=== PATIENT | female | born 1955 | race Caucasian/White ===

== ENCOUNTER 2023-02-02 10:18 | Emergency (ER) | payer MEDICARE, SELFPAY ==
[2023-02-02 10:34] VITALS: BP 145/97; PULSE 102; TEMP 36.4; O2SAT 96; BMI 21.4
--- NOTE | 2023-02-02 10:51 | XRR_ITS ---
PROCEDURE INFORMATION: Exam: XR Cervical Spine Exam date and time: 02/02/2023 11:18 AM Age: 67 years old Clinical indication: Other: Pain radiating from R neck down R arm; Additional info: Neck pain, radiating arm pain TECHNIQUE: Imaging protocol: Radiologic exam of the cervical spine. Views: 2 or 3 views. COMPARISON: No relevant prior studies available. FINDINGS: Bones/joints: Severe uncovertebral joint hypertrophic changes. Listhesis of C3 6 mm anterior to C4. Listhesis C4 6 mm anterior to C5. Moderate to severe degenerative disc disease C5/6 and C6/7 with moderate facet joint hypertrophic changes. No fracture. Soft tissues: Unremarkable. XR/XR cervical spine 3V* [id number] IMPRESSION: Arthritis and listhesis.
--- NOTE | 2023-02-02 10:53 | W.ED.EXTPRO ---
HPI - Extremity Problem General: Chief complaint: Extremity Injury, Upper Stated complaint: Right shoulder an arm pain Time Seen by Provider: 02/02/23 10:42 Source: patient Limitations: no limitations History of Present Illness: 67-year-old female presents to the ER today for severe right arm pain. Patient reports this began last night during the night. She reports she is taken aspirin, Tylenol, and ibuprofen with no improvement. Patient reports it starts in her right shoulder and radiates down to her right pinky. She reports she has some numbness in her right pinky. Patient reports rubbing the arm makes it worse because it hurts to even touch her skin. Patient reports this happened about a week ago but improved within a couple of hours. Patient denies any recent injury to the neck or shoulder however does report she had an accident years ago and did injure her neck at that time. Patient reports nothing she has done recently should have exacerbated that she can think of. Patient reports a week ago when she had the pain movement made the pain better however this time movement is making it worse. She has not had any imaging of the neck or shoulder done at this time. Review of Systems General: Reports: 10 or more systems reviewed and unremarkable except in HPI and below Physical Exam Const: COMMON NORMALS: average body habitus, patient oriented x3, no limitations, healthy appearing, alert and well nourished; apparent distress (appears uncomfortable) Neck/C-Spine: COMMON NORMALS: full ROM and no lymphadenopathy CERVICAL SPINE: Yes cervical ROM normal, No Cervical spine tenderness and No Paracervical muscle tenderness Resp: COMMON NORMALS: normal respiratory effort, No retractions and clear to auscultation bilaterally AUSCULTATION: clear to auscultation bilaterally Cardio: COMMON NORMALS: regular rate, regular rhythm and No murmurs present (Cardio) RATE: regular rate RHYTHM: regular rhythm Extremity: NARRATIVE EXTREMITY EXAM: Patient has full range of motion of the right shoulder however does report pain with all movements. No deformity or swelling is noted. Patient has full range of motion of the right hand but does experience some decreased sensation in the right pinky finger. Patient also has tenderness noted to light palpation of the skin along the ulna. Neuro: COMMON NORMALS: patient oriented x3 SENSORIUM/ORIENTATION: Yes alert Psych: COMMON NORMALS: mental status grossly normal, Normal thought process present and cooperative THOUGHT PROCESS: Normal thought process present Skin: COMMON NORMALS: no rashes or lesions noted and no wounds GENERAL SKIN EXAM: no rashes or lesions noted Course ED course: Patient presents for right arm pain. This pain starts in the right shoulder and radiates to the right pinky with some numbness associated. Based on history and physical exam, I suspect this is originating in the neck from a previous neck injury patient had years ago. Patient likely has some arthritis and possible stenosis. Patient does have full range of motion. We will do a steroid, muscle relaxer, and anti-inflammatory in the ER today. We will get an x-ray of the C-spine however I suspect patient will need further imaging outpatient. Vital Signs: Vital signs: Vital Signs Temperature 97.6 F 02/02/23 10:34 Pulse Rate 102 H 02/02/23 10:34 Blood Pressure 145/97 02/02/23 10:34 Pulse Oximetry 96 02/02/23 10:34 Oxygen Delivery Me thod Room Air 02/02/23 10:34 MDM - Extremity (Nontraumatic) Medical Decision Making Patient reports some mild improvement with Solu-Medrol in the ER. We will send patient home with Medrol Dosepak, tramadol, and Robaxin. Patient has significant arthritis and listhesis on cervical x-ray. I highly recommend patient see a specialist for this as this is only going to worsen. Patient is new to the area and needs a PCP. I will place referral to case management for both PCP and neck/cash reconciliation specialist. Recommend patient take it easy at home and do not do any heavy lifting or strenuous exercises at this time. Warm heat recommended. Take medications as prescribed. Return to the ER with new or worsening symptoms. Patient verbalized understanding and was in agreement with the treatment plan. Lab Data Radiology Impressions Cervical Spine X-Ray 02/02/23 10:51 IMPRESSION: Arthritis and listhesis. Critical Care Time Critical Care Time: Critical Care Time: No Discharge Plan Discharge Patient Disposition: Home Clinical Impression: Acute neck pain, Cervical spine arthritis with nerve pain Condition: Stable Prescriptions: New methocarbamol 750 mg tablet 750 mg PO Q8H Qty: 21 0RF Medrol ([place]) 4 mg tablets,dose pack See Rx Instructions .ROUTE .COMPLEX Qty: 21 0RF Rx Instructions: orally per package directions tramadol 50 mg tablet 50 mg PO TID PRN (Reason: pain) Qty: 14 0RF Discharge Orders: Discharge ED (Routine); Ordered 02/02/23 Ordered By: Nalini Mishra Discharge Diet: Usual diet Discharge Activity: Increase activity as tolerated Patient Instructions: Opioid Safety, Pain Management Activity Restrictions/Additional Instructions: Take medications as prescribed. Avoid heavy lifting or strenuous exercise. Follow-up with a PCP and specialist as discussed. Warm heat and topical muscle rubs recommended. Return to the ER with new or worsening symptoms. Coding Level of Care Code ED [employer] Product Advisor for Evelin Sam
[2023-02-02] MEDS: ketorolac 30 mg/mL INJ IM (11:21)
--- NOTE | 2023-02-03 09:33 | DCPLANNER ---
area manager called patient due to no primary care physician - no answer at this time.
== END 2023-02-02 13:30 | disposition home or self-care (01) ==
PROVIDERS: Emergency Provider Physician Assistant
DX: M47.812 Spondylosis without myelopathy or radiculopathy, cervical region (principal)
CPT/HCPCS: 72040; 96372; 99284; J1885; J2930